=== PATIENT | male | born 1955 | race Asian ===

== ENCOUNTER 2025-08-14 09:11 | Outpatient (RCR) | payer OTHER, SELFPAY | END 2025-08-14 23:59 | disposition home or self-care (01) | LOC: RPT 09:11 | PROVIDERS: ATTENDING PHYSICIAN Physician Assistant Medical; FAMILY PHYSICIAN Family Medicine | DX: Z47.1 Aftercare following joint replacement surgery (principal); Z73.6 Limitation of activities due to disability; R26.89 Other abnormalities of gait and mobility; M25.561 Pain in right knee; M62.81 Muscle weakness (generalized); Z96.653 Presence of artificial knee joint, bilateral | CPT/HCPCS: 97010; 97014; 97110; 97140; 97162; 97530 ==

== ENCOUNTER 2025-09-11 06:57 | Outpatient (RCR) | payer OTHER, SELFPAY | END 2025-09-11 23:59 | disposition home or self-care (01) | LOC: RPT 06:57 | PROVIDERS: ATTENDING PHYSICIAN Physician Assistant Medical; FAMILY PHYSICIAN Family Medicine | DX: Z47.1 Aftercare following joint replacement surgery (principal); Z73.6 Limitation of activities due to disability; R26.89 Other abnormalities of gait and mobility; M25.561 Pain in right knee; Z96.651 Presence of right artificial knee joint; M62.81 Muscle weakness (generalized); Z96.653 Presence of artificial knee joint, bilateral | CPT/HCPCS: 97010; 97014; 97110; 97140; 97164 ==

== ENCOUNTER 2025-10-01 08:21 | Outpatient (RCR) | payer OTHER, SELFPAY | END 2025-10-01 23:59 | disposition home or self-care (01) | LOC: RPT 08:21 | PROVIDERS: ATTENDING PHYSICIAN Physician Assistant Medical; FAMILY PHYSICIAN Family Medicine | DX: Z47.1 Aftercare following joint replacement surgery (principal); Z73.6 Limitation of activities due to disability; R26.89 Other abnormalities of gait and mobility; M25.561 Pain in right knee; M62.81 Muscle weakness (generalized); Z96.653 Presence of artificial knee joint, bilateral | CPT/HCPCS: 97010; 97110; 97530 ==